=== PATIENT | male | born 1965 | race American Indian/Alaskan Native ===

== ENCOUNTER 2019-09-22 06:16 | Day surgery (SDC) | payer BC ==
[2019-09-22] MEDS ORDERED: ASPIRIN EC 325 MG TAB PO NR (06:32)
[2019-09-22 07:14] LABS: Basophils % (Auto) 0.7 % (0.0-1.8); Eosinophils # (Auto) 0.2 K/mm3 (0.0-0.4); Eosinophils % (Auto) 2.7 % (0.0-4.3); Hematocrit 45.3 % (35.5-45.6); Lymphocytes # (Auto) 1.6 K/mm3 (1.2-5.4); Lymphocytes % (Auto) 23.9 % (13.4-35.0); Mean Corpuscular HGB Conc 33 % (32-34); Mean Corpuscular Volume 86 fl (84-94); Monocytes # (Auto) 0.6 K/mm3 (0.0-0.8); Monocytes % (Auto) 9.4 % (0.0-7.3); Platelet Count 251 K/mm3 (140-440); Red Blood Count 5.29 M/mm3 (3.65-5.03)
[2019-09-22 07:24] LABS: INR 1.05 (0.87-1.13); Partial Thromboplastin Time 26.2 Sec. (24.2-36.6)
[2019-09-22 07:31] LABS: BUN/Creatinine Ratio 14; Blood Urea Nitrogen 17 mg/dL (9-20); Hemolysis Index 3
[2019-09-22] MEDS: SODIUM CHLORIDE 0.9% 500 ML 500 ML IV SCH ×2 (07:43→08:40)
[2019-09-22] MEDS ORDERED: SODIUM CHLORIDE 0.45% 1000 ML 1,000 ML IV ONE (07:47)
[2019-09-22] MEDS ORDERED: SODIUM CHLORIDE 0.45% 500 ML IV SCH (08:00)
[2019-09-22] MEDS ORDERED: HEPARIN/NS 5000 UNIT/500ML 1,000 ML IR ONE (08:06)
[2019-09-22] MEDS: LIDOCAINE (2%) 20 MG/1 ML VIAL 20 ML MDV INFILTRATI ONE ×2 (08:39→08:56)
[2019-09-22] MEDS: fentaNYL 100 MCG/2 ML INJ ONE ×2 (08:39→08:48)
[2019-09-22] MEDS: VERAPAMIL 5 MG/2 ML INJ ONE ×2 (08:39→08:57)
[2019-09-22] MEDS: MIDAZOLAM 2 MG/2 ML INJ ONE ×2 (08:39→08:48)
[2019-09-22] MEDS: HEPARIN 10,000 UNITS/10 ML VIAL ONE ×2 (08:40→08:57)
[2019-09-22] MEDS: NITROGLYCERIN SYRINGE 3 ML ONE ×2 (08:41→08:57)
--- NOTE | 2019-09-22 09:29 | Short Stay Summary ---
Short Stay Documentation Date of service: 09/22/19 - History H&P: obtained from office - Allergies and Medications Current Medications: Allergies nickel Adverse Reaction (Mild, Verified 09/22/19 06:51) Rash Home Medications Medication Instructions Recorded Confirmed Last Taken Type Famotidine [Pepcid] 20 mg PO BID 09/21/19 09/22/19 Unknown History Metoprolol Xl [Metoprolol 50 mg PO DAILY 09/21/19 09/21/19 09/21/19 History SUCCINATE ER TAB] Rosuvastatin Calcium 5 mg PO HS 09/21/19 09/21/19 09/21/19 History Triamterene/Hydrochlorothiazid 0.5 tab PO DAILY 09/21/19 09/22/19 09/21/19 History [Triamterene-Hctz 37.5-25 mg Cp] amLODIPine [Norvasc] 10 mg PO DAILY 09/21/19 09/21/19 09/21/19 History Tadalafil [Cialis] 20 mg PO PRN PRN 09/22/19 09/22/19 Unknown History Active Medications Aspirin (Ecotrin) 325 mg PO ONCE NR Stop: 09/22/19 10:00 Last Admin: 09/22/19 06:48 Dose: 325 mg Documented by: Sodium Chloride (Nacl 0.9% 500 Ml) 500 mls @ 50 mls/hr IV DIRECT HARJINDER Stop: 09/22/19 16:59 Last Admin: 09/22/19 08:40 Dose: 50 mls/hr Documented by: Sodium Chloride (Nacl 0.45%) 500 mls @ 100 mls/hr IV DIRECT HARJINDER Sodium Chloride (Nacl 0.9% 1000 Ml) 1,000 mls @ 100 mls/hr IV DIRECT HARJINDER Stop: 09/22/19 12:59 - Brief post op/procedure progress note Date of procedure: 09/22/19 Pre-op diagnosis: sob Post-op diagnosis: same Procedure: see report Anesthesia: local Estimated blood loss: none Pathology: none - Disposition Condition at discharge: Good Disposition: DC-01 TO HOME OR SELFCARE - Discharge Diagnoses (1) Hypertension Status: Chronic Qualifiers: Hypertension type: essential hypertension Qualified Code(s): I10 - Essential (primary) hypertension (2) Hyperlipemia, mixed Status: Chronic (3) Family history of coronary arteriosclerosis Status: Chronic (4) Abnormal stress ECG Status: Resolved (5) SOB (shortness of breath) Status: Chronic Short Stay Discharge Plan Activity: advance as tolerated Follow up with: ROMAINE HALE MD [Primary Care Provider] - 7 Days
[2019-09-22] MEDS ORDERED: SODIUM CHLORIDE 0.9% 1000 ML 1,000 ML IV SCH (10:00)
--- NOTE | 2019-09-22 10:00 | Cardiac Catherization Report ---
LEFT HEART CATHETERIZATION CLINICAL INFORMATION: This is a 53-year-old gentleman with family history of premature CAD, abnormal stress test with mild apical ischemia, hypertension, hyperlipidemia, is here for left heart catheterization for shortness of breath and suspected coronary artery disease. Left heart catheterization was done under moderate sedation. Started 8:48 a.m., finished at 9:05 a.m. that is 16 minutes of supervised sedation. Procedure was done via the right radial artery, sterile technique, local anesthesia, 6-German radial sheath inserted. Left system engaged with a JL3.5 catheter. Left main is large and patent, bifurcates into large LAD, is patent from proximally and distally. Small diagonals are patent. Circumflex and AV groove is a medium to large caliber vessel patent, goes into OM1. OM2 and OM3 are small to medium caliber vessel, patent. RCA engaged with JR4, is a large dominant vessel, patent. PDA and PLV are small to medium caliber vessel, patent. LV gram done in QATARI and ROBB view shows normal LV function, EF 55-60%, LVEDP 23 mmHg, LV is 138 mmHg. Aortic is 135/83 mmHg. No gradient across the aortic valve on pullback. A 5-German catheters all taken over guidewire, 6-German radial sheath was discontinued. Radial band applied. No hematoma, no bleeding. SUMMARY: Left main patent, LAD patent, diagonal, circumflex patent; OM1, 2 and 3 patent; RCA patent. PDA patent. Normal LV function. Continue risk factor modification. Discussed in detail with the patient and the patient's family. JOB# [id number] GALINDO/KOKO
[2019-09-22 13:07] VITALS: BP 142/89
== END 2019-09-22 12:50 | disposition home or self-care (01) ==
LOC: CATHLABREC 06:16
PROVIDERS: ATTEND Internal Medicine
DX: R06.02 Shortness of breath (principal); R94.39 Abnormal result of other cardiovascular function study; I12.9 Hypertensive chronic kidney disease with stage 1 through stage 4 chronic kidney disease, or unspecified chronic kidney disease; N18.9 Chronic kidney disease, unspecified; E78.5 Hyperlipidemia, unspecified; I34.0 Nonrheumatic mitral (valve) insufficiency; E78.2 Mixed hyperlipidemia; K21.9 Gastro-esophageal reflux disease without esophagitis; M19.90 Unspecified osteoarthritis, unspecified site; Z87.891 Personal history of nicotine dependence; Z79.899 Other long term (current) drug therapy; Z98.890 Other specified postprocedural states; Z80.1 Family history of malignant neoplasm of trachea, bronchus and lung; Z82.49 Family history of ischemic heart disease and other diseases of the circulatory system; Z88.8 Allergy status to other drugs, medicaments and biological substances
CPT/HCPCS: 36415; 80048; 85025; 85610; 85730; 93005; 93010; 93458; 99156; C1894; J1644; J2250; J3010; J7030; J7040; Q9967